=== PATIENT | female | born 1950 | race Caucasian/White ===

== ENCOUNTER 2018-05-19 13:15 | Outpatient (CLI) | payer BC, MEDICARE ==
--- NOTE | 2018-05-19 15:16 | ULT ---
THYROID ULTRASOUND: INDICATIONS: Thyromegaly. FINDINGS: Both lobes of the thyroid are homogeneous. Both lobes are mildly prominent, with the right lobe zulema uring 5.2 x 1.5 x 1.8 cm. The left lobe measures 5.5 x 1.8 x 1.8 cm. There is a small, isoechoic nodule, inferior right lobe, measuring 0.6 cm, and a tiny, isoechoic nodu le, mid left lobe, measuring 5 to 6 mm. There is a more heterogeneous circumscribed nodule in the inferior left lobe, measuring 6 to 8 mm. IMPRESSION: 1. Mild thyromegaly, with dimensions given above. 2. Small nodules seen in both lobes, as described above. Six-month thyroid ultrasound followup is recommended to confirm stability. POS: CORI
== END 2018-05-19 13:16 | disposition home or self-care (01) ==
LOC: BICULT 13:15
PROVIDERS: ATTEND Family Medicine
DX: E01.0 Iodine-deficiency related diffuse (endemic) goiter (principal); E04.2 Nontoxic multinodular goiter
CPT/HCPCS: 76536